=== PATIENT | female | born 1945 | race Two or more races ===

== ENCOUNTER 2021-02-05 08:00 | Outpatient (CLI) | payer OTHER | END 2021-02-05 08:30 | disposition home or self-care (01) | LOC: PPH VACUNA 08:00 | PROVIDERS: ATTEND Emergency Medicine Pediatric Emergency Medicine | DX: Z23 Encounter for immunization (principal) ==

== ENCOUNTER 2024-04-25 14:16 | Outpatient (CLI) | payer OTHER | END 2024-04-25 14:26 | disposition home or self-care (01) | LOC: RAD 14:16 | PROVIDERS: ATTEND Family Medicine Adult Medicine | DX: R05.3 Chronic cough (principal) ==

== ENCOUNTER 2024-04-30 12:33 | Emergency (ER) | payer OTHER ==
[~2024-04-30] VITALS: Ht 149.9 cm; Wt 36.3 kg
[2024-04-30] MEDS ORDERED: LOSARTAN POTASS25 MG PO (12:52)
[2024-04-30] MEDS ORDERED: TOPROL XL25 M1 PO (12:53)
[2024-04-30] MEDS ORDERED: LEVO-T25 MCG PO (12:53)
[2024-04-30] MEDS ORDERED: GRALISE600 MG (12:53)
[2024-04-30] MEDS ORDERED: ATORVASTATIN CA20 MG PO (12:53)
[2024-04-30] MEDS ORDERED: PEPCID AC20 MG PO (12:53)
[2024-04-30 18:37] LABS: MEAN CELL VOLUME 85.6 fL (80.00-100.00); MEAN CORPUSCULAR HEMOGLOBIN 28.5 pg (27.00-32.0); MEAN CORPUSCULAR HGB CONC 33.3 g/dl (32.0-36.0); PLATELET COUNT 616 K/uL (150-450); RED BLOOD COUNT 4.21 M/uL (4.00-6.00); RED CELL DISTRIBUTION WIDTH 13.7 % (11.5-14.5)
[2024-04-30 20:34] LABS: ALBUMIN 3.1 gm/dL (3.4-5.0); BILIRUBIN TOTAL 0.45 mg/dL (0.3-1.2); CALCIUM 9.5 mg/dL (8.5-10.1); CREATININE SERUM 0.83 mg/dL (0.55-1.02); GFR 66.66; GLOBULINA 4.8 G/DL (2.4-3.5); POTASSIUM 3.96 mEq/L (3.5-5.1); TOTAL PROTEIN 7.9 gm/dL (6.4-8.2)
== END 2024-04-30 21:05 | disposition home or self-care (01) ==
LOC: ER 12:35
PROVIDERS: Preventive Medicine Public Health & General Preventive Medicine
DX: R05.8 Other specified cough (principal); I10 Essential (primary) hypertension; E03.8 Other specified hypothyroidism; M81.8 Other osteoporosis without current pathological fracture; Z88.2 Allergy status to sulfonamides

== ENCOUNTER 2024-07-11 11:52 | Outpatient (CLI) | payer OTHER ==
[~2024-07-11 11:52] MED LIST: ATORVASTATIN CA20 MG PO; GRALISE600 MG; LEVO-T25 MCG PO; LOSARTAN POTASS25 MG PO; PEPCID AC20 MG PO; TOPROL XL25 M1 PO
== END 2024-07-11 11:59 | disposition home or self-care (01) ==
LOC: MAMO-SONO 11:52
PROVIDERS: ATTEND Internal Medicine
DX: Z12.31 Encounter for screening mammogram for malignant neoplasm of breast (principal)

== ENCOUNTER 2024-07-11 13:18 | Outpatient (CLI) | payer OTHER | END 2024-07-11 13:19 | disposition home or self-care (01) | LOC: NUCLEAR 13:18 | PROVIDERS: ATTEND Internal Medicine | DX: M81.0 Age-related osteoporosis without current pathological fracture (principal) ==